=== PATIENT | male | born 1975 | race Caucasian/White ===

== ENCOUNTER 2017-06-14 13:29 | Inpatient (IN) | payer BC ==
[~2017-06-14] VITALS: Ht 162.6 cm; Wt 80.0 kg
[~2017-06-14 13:29] MED LIST: DEXAMETHASONE SOD PHOS 4 MG/ML VIAL IV ONE; LIDOCAINE HCL 1% PF 5 ML SYRINGE OTHER ONE; ONDANSETRON HCL 4 MG/2 ML VIAL IV ONE; PROPOFOL 200 MG/20 ML AMP IV ONE; ROCURONIUM INJ 50 MG/5 ML SYRINGE IV PUSH ONE
[2017-06-14 14:11] VITALS: BP 136/82; PULSE 101; RESP 16; TEMP 100.6; O2SAT 97
--- NOTE | 2017-06-14 14:42 | PD ---
HPI Chief Complaint: GI Complaint Time Seen by Provider: 14:36 Travel History International Travel<30 days: No Contact w/Intl Traveler<30days: No Traveled to known affect area: No History of Present Illness HPI Patient is a 42-year-old otherwise healthy male presents emergency department with gradually increasing right lower quadrant abdominal pain. Patient states it hurts him worse anytime he sits up or moves, states the pain is somewhat severe, no nausea no vomiting no diarrhea no change in urine habits. Patient states it started yesterday but gradually worsening. Right lower quadrant abdominal without radiation. [facility] Past Medical History Medical History: Denies Significant Hx Past Surgical History Narrative Surgical Knee surgery, shoulder surgery, lumbar fusion. Social History Alcohol Use: Yes Tobacco Use: No Substance Use: No Allergies-Medications (Allergen,Severity, Reaction): Coded Allergies: No Known Allergies (Unverified , 06/14/17) Reported Meds & Prescriptions Reported Meds & Active Scripts Active No Active Prescriptions or Reported Medications Review of Systems Except as stated in HPI: all other systems reviewed are Neg Physical Exam Narrative GENERAL: Well-developed well-nourished in no obvious distress peer SKIN: Focused skin assessment warm/dry. HEAD: Atraumatic. Normocephalic. EYES: Pupils equal and round. No scleral icterus. No injection or drainage. ENT: No nasal bleeding or discharge. Mucous membranes pink and moist. NECK: Trachea midline. No JVD. CARDIOVASCULAR: Regular rate and rhythm. No murmur appreciated. RESPIRATORY: No accessory muscle use. Clear to auscultation. Breath sounds equal bilaterally. GASTROINTESTINAL: Abdomen soft, fairly tender in the right lower quadrant, no rebound tenderness, there is some tenderness to indirect percussion in the right lower quadrant, there is some voluntary guarding in the right lower quadrant. Table bump was negative. GENITOURINARY: Grossly normal circumcised male genitalia, no tenderness, no inguinal hernia MUSCULOSKELETAL: No obvious deformities. No clubbing. No cyanosis. No edema. NEUROLOGICAL: Awake and alert. No obvious cranial nerve deficits. Motor grossly within normal limits. Normal speech. PSYCHIATRIC: Appropriate mood and affect; insight and judgment normal. Data Data Last Documented VS Vital Signs Date Time Temp Pulse Resp B/P (MAP) Pulse Ox O2 Delivery O2 Flow Rate FiO2 06/14/17 15:06 99.1 06/14/17 14:11 101 16 97 Orders Orders Complete Blood Count With Diff (06/14/17 14:12) Comprehensive Metabolic Panel (06/14/17 14:12) Urinalysis - C+S If Indicated (06/14/17 14:12) Act Partial Throm Time (Ptt) (06/14/17 14:12) Prothrombin Time / Inr (Pt) (06/14/17 14:12) Morphine Inj (Morphine Inj) (06/14/17 14:45) Sodium Chlor 0.9% 1000 Ml Inj (Ns 1000 M (06/14/17 14:45) Diet Npo (06/14/17 Dinner) Ondansetron Inj (Zofran Inj) (06/14/17 15:00) Ct Abd/Pel W Iv Contrast(Rout) (06/14/17 15:10) Ampicillin-Sulbactam Inj (Unasyn Inj) (06/14/17 16:15) Iohexol 350 Inj (Omnipaque 350 Inj) (06/14/17 16:17) Sodium Chlor 0.9% 1000 Ml Inj (Ns 1000 M (06/14/17 17:00) Type And Screen (06/14/17 16:27) Admit Order (Ed Use Only) (06/14/17 ) Labs Laboratory Tests Test 06/14/17 14:20 06/14/17 14:30 White Blood Count 22.0 TH/MM3 Red Blood Count 4.96 MIL/MM3 Hemoglobin 15.8 GM/DL Hematocrit 44.7 % Mean Corpuscular Volume 90.2 FL Mean Corpuscular Hemoglobin 31.9 PG Mean Corpuscular Hemoglobin Concent 35.4 % Red Cell Distribution Width 12.9 % Platelet Count 264 TH/MM3 Mean Platelet Volume 8.6 FL Neutrophils (%) (Auto) 85.1 % Lymphocytes (%) (Auto) 7.6 % Monocytes (%) (Auto) 7.2 % Eosinophils (%) (Auto) 0.0 % Basophils (%) (Auto) 0.1 % Neutrophils # (Auto) 18.7 TH/MM3 Lymphocytes # (Auto) 1.7 TH/MM3 Monocytes # (Auto) 1.6 TH/MM3 Eosinophils # (Auto) 0.0 TH/MM3 Basophils # (Auto) 0.0 TH/MM3 CBC Comment DIFF FINAL Differential Comment Prothrombin Time 11.9 SEC Prothromb Time International Ratio 1.2 RATIO Activated Partial Thromboplast Time 27.8 SEC Blood Urea Nitrogen 7 MG/DL Creatinine 0.88 MG/DL Random Glucose 125 MG/DL Total Protein 7.6 GM/DL Albumin 3.8 GM/DL Calcium Level 8.8 MG/DL Alkaline Phosphatase 58 U/L Aspartate Amino Transf (AST/SGOT) 14 U/L Alanine Aminotransferase (ALT/SGPT) 27 U/L Total Bilirubin 1.2 MG/DL Sodium Level 134 MEQ/L Potassium Level 3.8 MEQ/L Chloride Level 101 MEQ/L Carbon Dioxide Level 23.5 MEQ/L Anion Gap 10 MEQ/L Estimat Glomerular Filtration Rate 95 ML/MIN Urine Color YELLOW Urine Turbidity CLEAR Urine pH 7.5 Urine Specific [place] 1.020 Urine Protein 30 mg/dL Urine Glucose (UA) NEG mg/dL Urine Ketones TRACE mg/dL Urine Occult Blood NEG Urine Nitrite NEG Urine Bilirubin NEG Urine Urobilinogen LESS THAN 2.0 MG/DL Urine Leukocyte Esterase NEG Urine RBC 1 /hpf Urine WBC LESS THAN 1 /hpf Urine Squamous Epithelial Cells <1 /hpf Microscopic Urinalysis Comment CULT NOT INDICATED MDM Medical Decision Making Medical Screen Exam Complete: Yes Emergency Medical Condition: Yes Differential Diagnosis Acute appendicitis, ruptured appendicitis, hernia unlikely, kidney stone Narrative Course Last 24 hours Impressions Abdomen/Pelvis CT 06/14/17 1510 Signed Impressions: Service Date/Time: Wednesday, June 14, 2017 16:05 - CONCLUSION: 1. Severe inflammatory changes in the right lower quadrant secondary to acute appendicitis. The appendix is dilated and an appendicolith is visualized. The severe surrounding inflammatory change cause thickening of the distal ileum. The appearance and free fluid present are suspicious for rupture. 2. No other acute finding is identified. Kanu Yang MD The findings above were discussed with the patient and recommended admission for probable operative intervention, discussed with Dr. Felix who will alert the operating room, he agrees with Unasyn given. Diagnosis Primary Impression: Acute appendicitis Admitting Information Admitting Physician Requests: Admit Scripts No Active Prescriptions or Reported Meds Condition: Syed Wick MD Jun 14, 2017 14:42
[2017-06-14] MEDS ORDERED: MORPHINE SULFATE 4 MG/ML INJ IV PUSH ONE (14:45)
[2017-06-14] MEDS ORDERED: SODIUM CHLOR 0.9% 1000 ML INJ 1,000 ML IV ONE ×2 (14:45→17:00)
[2017-06-14] MEDS ORDERED: ONDANSETRON HCL 4 MG/2 ML VIAL IV PUSH ONE (15:00)
[2017-06-14 15:06] VITALS: TEMP 99.1
[2017-06-14 15:07] LABS: AUTOMATED NEUTROPHIL # 18.7 TH/MM3 (1.8-7.7); BASOPHIL % 0.1 % (0.0-2.0); HEMATOCRIT 44.7 % (39.0-51.0); HEMOGLOBIN 15.8 GM/DL (13.0-17.0); LYMPH % 7.6 % (9.0-44.0); LYMPHOCYTE # 1.7 TH/MM3 (1.0-4.8); MEAN CELL VOLUME 90.2 FL (80.0-100.0); MEAN CORPUSCULAR HEMOGLOBIN 31.9 PG (27.0-34.0); MEAN CORPUSCULAR HGB CONC 35.4 % (32.0-36.0); MEAN PLATELET VOLUME 8.6 FL (7.0-11.0); MONO % 7.2 % (0.0-8.0); MONOCYTE # 1.6 TH/MM3 (0-0.9); NEUT % 85.1 % (16.0-70.0); PLATELET COUNT 264 TH/MM3 (150-450); RED BLOOD COUNT 4.96 MIL/MM3 (4.50-5.90); RED CELL DISTRIBUTION WIDTH 12.9 % (11.6-17.2)
[2017-06-14 15:10] LABS: BILIRUBIN, URINE NEG (NEG); BLOOD, URINE NEG (NEG); GLUCOSE,URINE NEG (NEG); KETONE, URINE TRACE mg/dL (NEG); NITRITE,URINE NEG (NEG); PH, URINE 7.5 (5.0-8.5); SQUAMOUS EPITHELIAL CELL URINE <1 /hpf (0-5); URINE COLOR YELLOW (YELLW/STRAW); URINE LEUKOCYTE ESTERASE NEG (NEG)
[2017-06-14 15:28] LABS: INTERNATIONAL NORMALIZED RATIO 1.2 RATIO; PROTHROMBIN TIME - PATIENT 11.9 SEC (9.8-11.6)
[2017-06-14 15:31] LABS: ALBUMIN 3.8 GM/DL (3.4-5.0); ALT (GPT) 27 U/L (12-78); AST (GOT) 14 U/L (15-37); BICARBONATE 23.5 MEQ/L (21.0-32.0); BLOOD UREA NITROGEN 7 MG/DL (7-18); CALCIUM 8.8 MG/DL (8.5-10.1); CHLORIDE 101 MEQ/L (98-107); CREATININE 0.88 MG/DL (0.60-1.30); GLOMERULAR FILTRATION RATE 95 ML/MIN (>89); GLUCOSE,RANDOM 125 MG/DL (74-106); SODIUM (NA) 134 MEQ/L (136-145)
[2017-06-14 15:32] LABS: ALKALINE PHOSPHATASE 58 U/L (45-117); TOTAL BILIRUBIN ADULT 1.2 MG/DL (0.2-1.0); TOTAL PROTEIN 7.6 GM/DL (6.4-8.2)
[2017-06-14] MEDS ORDERED: AMPICILLIN-SULBACTAM INJ 3 GM in SODIUM CHLORIDE 0.9% INJ 100 ML IV ONE (16:15)
[2017-06-14] MEDS ORDERED: IOHEXOL 350 MG/ML 10 ML VIAL (for RAD DIAG) IVCONTRAST ONE (16:17)
--- NOTE | 2017-06-14 16:36 | RADRPT ---
EXAM DATE/TIME: 06/14/2017 16:05 [facility] COMPARISON: No previous studies available for comparison. INDICATIONS : Right lower quadrant pain since yesterday IV CONTRAST: 87 cc Omnipaque 350 (iohexol) IV ORAL CONTRAST: No oral contrast ingested. RADIATION DOSE: 10.50 CTDIvol (mGy) MEDICAL HISTORY : None SURGICAL HISTORY : None. ENCOUNTER: Initial ACUITY: 1 day PAIN SCALE: 8/10 LOCATION: Right lower quadrant TECHNIQUE: Volumetric scanning of the abdomen and pelvis was performed. Using automated exposure control and ad justment of the mA and/or kV according to patient size, radiation dose was kept as low as reasonably achievable to obtain optimal diagnostic quality images. DICOM format image data is available electro nically for review and comparison. FINDINGS: LOWER LUNGS: The visualized lower lungs are clear. LIVER: Homogeneous density without lesion. There is no dilation of the biliary tree. No calcified gallston es. SPLEEN: Normal size without lesion. PANCREAS: Within normal limits. KIDNEYS: Normal in size and shape. There is no mass, stone or hydronephrosis. ADRENAL GLANDS: Within normal limits. VASCULAR: There is no aortic aneurysm. BOWEL/MESENTERY: The stomach and proximal small bowel are within normal limits. There is wall thickening of the distal ileum adjacent to the right lower quadrant inflammatory process. Adjacent to the base of the cecum i s a curvilinear calcification measuring approximately 14 mm. There is a tubular structure measuring 1 2 mm in diameter that is fluid filled. There is severe surrounding inflammatory change and there is a small volume of fluid in the right paracolic gutter and within the dependent aspect of the pelvis. M ild sigmoid diverticulosis is present. There is no free intraperitoneal air. ABDOMINAL WALL: Within normal limits. RETROPERITONEUM: There is no lymphadenopathy. BLADDER: No wall thickening or mass. REPRODUCTIVE: Within normal limits. INGUINAL: There is no lymphadenopathy or hernia. MUSCULOSKELETAL: There are mild degenerative changes of the lumbar spine and patient is post posterior spinal fixation with laminectomy at L4-L5. CONCLUSION: 1. Severe inflammatory changes in the right lower quadrant secondary to acute appendicitis. The appen ashley is dilated and an appendicolith is visualized. The severe surrounding inflammatory change cause t hickening of the distal ileum. The appearance and free fluid present are suspicious for rupture. 2. No other acute finding is identified. Kanu Yang MD on June 14, 2017 at 16:29 Board Certified Radiologist. This report was verified electronically.
[2017-06-14] MEDS ORDERED: BUPIVACAINE/EPINEPHRINE 0.25% 50 ML VIAL ONE (17:27)
[2017-06-14] MEDS ORDERED: METOCLOPRAMIDE HCL 10 MG/2 ML VIAL ONE (18:13)
[2017-06-14] MEDS ORDERED: FAMOTIDINE 20 MG/2 ML VIAL ONE (18:13)
[2017-06-14] MEDS ORDERED: SUGAMMADEX SODIUM 200 MG/2 ML VIAL IV PUSH ONE (18:54)
[2017-06-14] MEDS ORDERED: *MEPERIDINE 25 MG INJ VIAL PERIprocedural Use ONLY ONE (19:17)
[2017-06-14] MEDS ORDERED: DO NOT ADM ANY ANTICOAGULANT DRUGS PRN (19:21)
[2017-06-14] MEDS ORDERED: PROMETHAZINE HCL 25 MG SUPP RECTAL PRN (19:30)
[2017-06-14] MEDS ORDERED: MIDAZOLAM HCL 2 MG/2 ML VIAL ONE (19:33)
[2017-06-14] MEDS ORDERED: NALOXONE HCL 0.4 MG/ML AMP IV PUSH PRN (20:00)
[2017-06-14] MEDS ORDERED: BENZOCAINE 20% ORAL SPR 60 ML CAN MT PRN (20:00)
[2017-06-14] MEDS ORDERED: diphenhydrAMINE HCL 50 MG/ML VIAL IV PUSH PRN (20:00)
[2017-06-14] MEDS ORDERED: SODIUM CHLORIDE 0.9% FLUSH 10 ML FLUSH IV FLUSH PRN (20:00)
[2017-06-14] MEDS ORDERED: METOCLOPRAMIDE HCL 10 MG/2 ML VIAL IV PUSH PRN (20:00)
[2017-06-14] MEDS ORDERED: ONDANSETRON HCL 4 MG/2 ML VIAL IV PUSH PRN (20:00)
[2017-06-14] MEDS: ACETAMINOPHEN 1000 MG/100 ML 100 ML IV SCH (20:00)
[2017-06-14] MEDS: LACTATED RINGER'S 1000 ML INJ 1,000 ML IV SCH (20:00)
--- NOTE | 2017-06-14 20:11 | MH ---
cc: Bhavik Ayala MD DATE OF ADMISSION: 06/14/2017 CHIEF COMPLAINT: Acute appendicitis. HISTORY OF PRESENT ILLNESS: Patient is a 42-year-old male who was visiting the [place] with his family from [place] who developed 24 hours of increasing right lower quadrant pain. The pain became worse over night associated with movement. He has no other nausea, vomiting or relieving or aggravating factors. He has never had pain like this before. The patient denies fever, chills, night sweats, diarrhea, constipation or any other complaints. Patient did present to the emergency department at [facility] and he was found to have leukocytosis on laboratory values as well as inflammation of the right lower quadrant concerning for appendicitis on his CT scan. General surgery was asked to see the patient in the emergency department. REVIEW OF SYSTEMS: A 12-point review of systems was conducted with the patient and is negative except for the pertinent positives mentioned above in the history of present illness. PAST MEDICAL HISTORY: None. PAST SURGICAL HISTORY: No previous abdominal surgeries. ALLERGIES: NO KNOWN DRUG ALLERGIES.. MEDICATIONS: No chronic medications. SOCIAL HISTORY: Patient denies alcohol, tobacco or illicit drug use. FAMILY HISTORY: No history of GI malignancy or inflammatory bowel disease. PHYSICAL EXAMINATION: VITAL SIGNS: Temperature 100.6, heart rate 101, blood pressure 136/82. GENERAL: The patient is a well-developed, well-nourished, male in no acute distress. He appears ill and uncomfortable. HEENT: Head is normocephalic, atraumatic. Pupils are round and reactive to light. Sclerae anicteric. Oral cavity is clear. Airway is patent. NECK: Supple. No JVD. No lymphadenopathy. LUNGS: Clear to auscultation bilaterally with an unlabored breathing pattern. HEART: Regular in rhythm. PMI is nondisplaced. ABDOMEN: Hypoactive bowel sounds. Focal peritonitis with rebound tenderness on the right lower quadrant. No diffuse peritonitis or rebound tenderness. No surgical scars. No hernias. No organomegaly. No ascites. BACK: No CVA tenderness. RECTAL: Exam is deferred. EXTREMITIES: No clubbing, cyanosis or edema. NEUROLOGIC: Patient is alert and oriented x 3. Mood, judgment and insight are intact. Nonfocal peripheral exam. Cranial nerves 2-12 are grossly intact. LABORATORY VALUES: Unremarkable with the exception of leukocytosis of 22. ASSESSMENT AND PLAN: Patient is a 42-year-old male with acute appendicitis. I had discussion with the patient and his at the bedside about treatment options and recommendations. I do strongly recommend the patient proceed urgently to the operating room for laparoscopic appendectomy. I discussed the surgery, the risks, benefits and alternatives; and also discussed outcomes including outcomes of ruptured appendicitis including abscess formation and prolonged hospitalization and need for further procedures. They are in agreement and wish to proceed with the procedure. We will continue the patient nothing my mouth and IV fluids and IV antibiotics until operating room is available and proceed urgently to the operating room for laparoscopic appendectomy. MD MYA Calzada/DOMINIC , 07:33 PM , 08:09 PM
--- NOTE | 2017-06-14 20:33 | MP ---
cc: Bhavik Ayala MD DATE OF OPERATION: 06/14/2017 PREOPERATIVE DIAGNOSIS: Acute appendicitis. POSTOPERATIVE DIAGNOSIS: Acute ruptured appendicitis. ATTENDING SURGEON: Bhavik Ayala MD BAR SUPERVISOR: Staff. PROCEDURE: Laparoscopic appendectomy with laparoscopic drainage of intraabdominal periappendiceal abscess. ANESTHESIA: General and local anesthetic. BLOOD LOSS: Less than 25 mL. FINDINGS: Ruptured appendicitis at the tip of the appendix with early abscess formation around the tip and against the right lower quadrant of the abdominal wall. INDICATION FOR PROCEDURE: The patient is a 42-year-old male with 24 hours increasing right lower quadrant pain. The patient was visiting [facility] from [place] when he developed severe onset of abdominal pain in the right lower quadrant that worsened overnight. He presented to [facility] and was found to have acute appendicitis clinically as well as on imaging. The patient was taken to the operating room for laparoscopic appendectomy and risks, benefits and alternatives were discussed with the patient and his prior to the procedure and agreed to undergo the procedure. DESCRIPTION OF PROCEDURE: The patient taken to the operating room, placed in supine position and placed under general endotracheal anesthesia. The patient's abdomen was shaved, prepped and draped in sterile fashion. Time out was performed. The abdomen was entered through Rossi type technique with a periumbilical curvilinear incision 2 cm in length below the umbilicus, directly down to the fascia. The fascia was opened with an 11 blade scalpel without difficulty. Directly entered the abdomen with the hemostat and S retractors and placed a 5 mm balloon trocar into the abdomen under direct visualization. We insufflated the abdomen. There was no evidence of any complication from our injury. We placed two 5 mm ports, one in the suprapubic position and one in the left lower quadrant under direct visualization of the laparoscope. We were able to easily identify the appendix in the right lower quadrant. We did some blunt lysis of adhesions and took down some inflammatory adhesions of the appendix up against the abdominal wall and entered an early abscess cavity with purulence and clear fluid as well as some gross contamination from obviously ruptured appendix at the tip of the appendix. We dissected out the appendix and made a window at the base of the appendix using the [place] dissector. We divided the base of the appendix as it transitioned into the cecum with a white load on the [place]wood stapler. The tissue was healthy and viable in this area with minimal inflammation and our staple line was intact with no bleeding or leak. We then used a second white load to divide the mesentery of the appendix without difficulty. The appendix was removed from the abdomen with the EndoCatch bag at the periumbilical Rossi port. We irrigated out the abdomen with 3 liters of saline until all suction was clear and all contamination, purulent material or any debris were all clearly suctioned out from the right lower quadrant. We had excellent hemostasis spontaneously. At this point in time we placed a 19 Romanian round Alphonse drain through the suprapubic 5 mm port and into the right lower quadrant and looping this into the pelvis. We placed the omentum back into the right lower quadrant and ensured everything was in normal anatomic position. There was no evidence of any other intraabdominal process or pathology. We removed the ports under visualization of the laparoscope and expressed pneumoperitoneum. We closed the Rossi fascia entry with a [id number] 0 Vicryl suture. We closed the skin with a 4-0 Monocryl and Dermabond. Patient's drain was placed to bulb suction and dressing was placed around this. We transported the patient to the PACU in stable after discontinuation of anesthesia. The patient tolerated the procedure well and no apparent complications. All counts were correct and I was present and scrubbed for the entire procedure. MD BRIANNA CalzadaG/rt , 07:38 PM , 08:31 PM KATIE
[2017-06-14] MEDS: FAMOTIDINE 20 MG/2 ML VIAL IV PUSH SCH (20:35)
[2017-06-14] MEDS ORDERED: HYDROmorphone HCL PF 2 MG/ML VIAL IV PUSH PRN (20:45)
[2017-06-14] MEDS: PIPERACIL-TAZO 3.375 GM PREMIX 50 ML IV SCH (20:45)
[2017-06-14] MEDS ORDERED: ACETAMINOPHEN/HYDROcodone 325 MG/5 MG TAB PO PRN (20:45)
[2017-06-14] MEDS ORDERED: Post-op Orders (for Pharmacy) XX ONE (21:00)
[2017-06-14] MEDS: SODIUM CHLORIDE 0.9% FLUSH 10 ML FLUSH IV FLUSH SCH (21:00)
[2017-06-15] VITALS (8 sets, daily range): BP systolic 111–123; BP diastolic 55–74; PULSE 51–86; RESP 18–19; TEMP 97.9–98.8; O2SAT 93–98
[2017-06-15] MEDS: ACETAMINOPHEN/HYDROcodone 325 MG/10 MG TAB PO PRN ×4 (00:58→21:16)
[2017-06-15] MEDS: ACETAMINOPHEN 1000 MG/100 ML 100 ML IV SCH ×3 (04:02→14:07)
[2017-06-15] MEDS: PIPERACIL-TAZO 3.375 GM PREMIX 50 ML IV SCH ×4 (04:03→21:15)
[2017-06-15] MEDS: LACTATED RINGER'S 1000 ML INJ 1,000 ML IV SCH ×3 (05:37→14:49)
[2017-06-15] MEDS: SODIUM CHLORIDE 0.9% FLUSH 10 ML FLUSH IV FLUSH SCH ×2 (08:27→21:00)
[2017-06-15] MEDS: FAMOTIDINE 20 MG/2 ML VIAL IV PUSH SCH ×2 (08:27→21:16)
[2017-06-15] MEDS: ENOXAPARIN SODIUM 40 MG/0.4 ML SYRINGE SQ SCH ×2 (11:23→21:16)
--- NOTE | 2017-06-15 16:30 | HHI.PR ---
Subjective Subjective Notes Resting in bed Walked in hallways this AM Objective Vitals/I&O Vital Signs Date Time Temp Pulse Resp B/P (MAP) Pulse Ox O2 Delivery O2 Flow Rate FiO2 06/15/17 12:00 98.8 55 18 118/74 (89) 96 06/15/17 08:49 21 06/15/17 00:20 Nasal Cannula 2.00 Cardiovascular: Regular Lungs: Clear Abdomen: Other (slightly distended; LEW with SS drainage; lap sites c/d/i ) Extremities: No edema A/P Assessment and Plan 42 year old male POD1 lap appy; perforated -Continue clear liquids until bowel function returns -IVF -Zosyn -OOB as tolerated -Pain control Attending Statement The exam, history, and the medical decision-making described in the above note were completed with the assistance of the mid-level provider. I reviewed and agree with the findings presented. I attest that I had a [id number] encounter with the patient on the same day, and personally performed and documented my assessment and findings in the medical record. patient s/p lap appy abdominal exam stable postop pain ok ok for SHANTAL hoffman Kathryn B. ARNP/First Lorraine ALEJANDRA Jun 15, 2017 16:30 Bhavik Ayala MD Jun 16, 2017 12:49
[2017-06-16] VITALS (8 sets, daily range): BP systolic 90–132; BP diastolic 52–88; PULSE 72–95; RESP 16–20; TEMP 98.2–98.9; O2SAT 94–98
[2017-06-16] MEDS: PIPERACIL-TAZO 3.375 GM PREMIX 50 ML IV SCH ×3 (03:26→15:17)
[2017-06-16] MEDS: LACTATED RINGER'S 1000 ML INJ 1,000 ML IV SCH ×4 (03:26→20:00)
[2017-06-16] MEDS: ACETAMINOPHEN/HYDROcodone 325 MG/10 MG TAB PO PRN ×3 (08:11→20:38)
[2017-06-16 08:30] LABS: AUTOMATED NEUTROPHIL # 7.4 TH/MM3 (1.8-7.7); BASOPHIL % 0.3 % (0.0-2.0); EOSINOPHIL % 0.4 % (0.0-4.0); HEMATOCRIT 39.3 % (39.0-51.0); HEMOGLOBIN 13.8 GM/DL (13.0-17.0); LYMPH % 16.1 % (9.0-44.0); LYMPHOCYTE # 1.5 TH/MM3 (1.0-4.8); MEAN CELL VOLUME 92.9 FL (80.0-100.0); MEAN CORPUSCULAR HEMOGLOBIN 32.7 PG (27.0-34.0); MEAN CORPUSCULAR HGB CONC 35.2 % (32.0-36.0); MEAN PLATELET VOLUME 8.6 FL (7.0-11.0); MONO % 6.5 % (0.0-8.0); MONOCYTE # 0.6 TH/MM3 (0-0.9); NEUT % 76.7 % (16.0-70.0); PLATELET COUNT 225 TH/MM3 (150-450); RED BLOOD COUNT 4.23 MIL/MM3 (4.50-5.90); WHITE BLOOD COUNT 9.6 TH/MM3 (4.0-11.0)
[2017-06-16] MEDS: SODIUM CHLORIDE 0.9% FLUSH 10 ML FLUSH IV FLUSH SCH ×2 (09:00→20:36)
[2017-06-16] MEDS: FAMOTIDINE 20 MG/2 ML VIAL IV PUSH SCH ×2 (09:11→20:36)
--- NOTE | 2017-06-16 12:25 | HHI.PR ---
Subjective Subjective Notes feels better Objective Vitals/I&O Vital Signs Date Time Temp Pulse Resp B/P (MAP) Pulse Ox O2 Delivery O2 Flow Rate FiO2 06/16/17 08:00 98.4 72 17 127/72 (90) 96 06/15/17 08:49 21 06/15/17 00:20 Nasal Cannula 2.00 Labs Laboratory Tests Test 06/16/17 07:50 White Blood Count 9.6 Red Blood Count 4.23 Hemoglobin 13.8 Hematocrit 39.3 Mean Corpuscular Volume 92.9 Mean Corpuscular Hemoglobin 32.7 Mean Corpuscular Hemoglobin Concent 35.2 Red Cell Distribution Width 13.0 Platelet Count 225 Mean Platelet Volume 8.6 Neutrophils (%) (Auto) 76.7 Lymphocytes (%) (Auto) 16.1 Monocytes (%) (Auto) 6.5 Eosinophils (%) (Auto) 0.4 Basophils (%) (Auto) 0.3 Neutrophils # (Auto) 7.4 Lymphocytes # (Auto) 1.5 Monocytes # (Auto) 0.6 Eosinophils # (Auto) 0.0 Basophils # (Auto) 0.0 CBC Comment AUTO DIFF Differential Comment AUTO DIFF CONFIRMED Abdomen: Non-distended, Post-op tenderness A/P Assessment and Plan 42yo make s/p lap appy for perforated appendicitis, stable. advance diet dc drain DC home Monday for flight out Monday to [place] cont Bhavik Burnham MD Jun 16, 2017 12:25
[2017-06-16] MEDS ORDERED: AMOX875T2 PO (16:48)
[2017-06-16] MEDS ORDERED: HYDR-3516 PO (16:49)
[2017-06-16] MEDS: AMOXICILLIN/CLAVULANATE K 875 MG TAB PO SCH (20:35)
[2017-06-16] MEDS: MAGNESIUM HYDROXIDE SUSP 30 ML CUP PO PRN (20:52)
[2017-06-17 00:20] VITALS: BP 113/54; PULSE 86; RESP 20; TEMP 99.8; O2SAT 94
[2017-06-17 04:00] VITALS: BP 124/61; PULSE 64; RESP 16; TEMP 99; O2SAT 94
[2017-06-17] MEDS: LACTATED RINGER'S 1000 ML INJ 1,000 ML IV SCH ×3 (04:00→20:00)
[2017-06-17] MEDS: ACETAMINOPHEN/HYDROcodone 325 MG/10 MG TAB PO PRN ×3 (06:18→20:59)
[2017-06-17 08:00] VITALS: BP 121/74; PULSE 84; RESP 17; TEMP 98.6; O2SAT 94
[2017-06-17] MEDS: SODIUM CHLORIDE 0.9% FLUSH 10 ML FLUSH IV FLUSH SCH ×2 (09:03→21:01)
[2017-06-17] MEDS: FAMOTIDINE 20 MG/2 ML VIAL IV PUSH SCH ×2 (09:03→20:58)
[2017-06-17] MEDS: AMOXICILLIN/CLAVULANATE K 875 MG TAB PO SCH ×2 (09:03→20:58)
[2017-06-17] MEDS: MAGNESIUM HYDROXIDE SUSP 30 ML CUP PO PRN (09:03)
[2017-06-17 12:00] VITALS: BP 141/67; PULSE 87; RESP 17; TEMP 98.3; O2SAT 96
[2017-06-17] MEDS: ENOXAPARIN SODIUM 40 MG/0.4 ML SYRINGE SQ SCH (15:21)
[2017-06-17 16:00] VITALS: BP 136/76; PULSE 101; RESP 17; TEMP 99.6; O2SAT 96
--- NOTE | 2017-06-17 16:30 | HHI.PR ---
cc: Jarrod Chaves MD Subjective Subjective Notes DAILY PROGRESS NOTE FOR SURGICAL ATTENDING, DR. JARROD CHAVES Feeling good tolerating diet Normal postoperative discomfort Objective Vitals/I&O Vital Signs Date Time Temp Pulse Resp B/P (MAP) Pulse Ox O2 Delivery O2 Flow Rate FiO2 06/17/17 16:00 99.6 101 17 136/76 (96) 96 06/15/17 08:49 21 06/15/17 00:20 Nasal Cannula 2.00 Radiology Last Impressions Abdomen/Pelvis CT 06/14/17 1510 Signed Impressions: Service Date/Time: Wednesday, June 14, 2017 16:05 - CONCLUSION: 1. Severe inflammatory changes in the right lower quadrant secondary to acute appendicitis. The appendix is dilated and an appendicolith is visualized. The severe surrounding inflammatory change cause thickening of the distal ileum. The appearance and free fluid present are suspicious for rupture. 2. No other acute finding is identified. aKnu Yang MD Cardiovascular: Regular Lungs: Clear Abdomen: Post-op tenderness Extremities: No edema, Perfused A/P Problem List: (1) Status post laparoscopic appendectomy ICD Codes: Z90.49 - Acquired absence of other specified parts of digestive tract Status: Acute (2) Acute appendicitis ICD Codes: K35.80 - Unspecified acute appendicitis Status: Resolved Assessment and Plan 48-year-old gentleman underwent laparoscopic appendectomy for perforated appendicitis He is progressing nicely Hopefully he can be discharged tomorrow prescriptions for antibiotics and pain medicine are on the chart. Arrangements are being made to have him fly back to [place] on Monday I believe he may be ready to be discharged tomorrow Attending Statement NOTE FOR SURGICAL ATTENDING, DR. JARROD CHAVES I attest that I had a [id number] encounter with the patient on the same day, and personally performed and documented my assessment and findings in the medical record. The following services were provided during this hospital visit: Chart data review, vital sign assessments/reviewing monitor data Review of consultations notes if present. Medication orders/review and/or management Ordering and/or reviewing lab tests Ordering and/or interpreting/reviewing x-rays and/or diagnostic studies Care of the patient and discussion of the patient with the care team Documentation time To help prompt me to consider important information that might be impacting today's encounter and assessment, information from prior notes written by myself or my colleagues may have been "brought forward/copy and pasted" into today's note. Problem Qualifiers (1) Acute appendicitis: Qualified Codes: K35.3 - Acute appendicitis with localized peritonitis Jarrod Chaves MD Jun 17, 2017 16:30
[2017-06-17 20:23] VITALS: BP 118/57; PULSE 71; RESP 18; TEMP 98.9; O2SAT 98
[2017-06-18 00:30] VITALS: BP 113/68; PULSE 71; RESP 19; TEMP 98.6; O2SAT 95
[2017-06-18] MEDS: ACETAMINOPHEN/HYDROcodone 325 MG/10 MG TAB PO PRN (03:31)
[2017-06-18] MEDS: LACTATED RINGER'S 1000 ML INJ 1,000 ML IV SCH ×2 (04:00→08:43)
[2017-06-18 05:16] VITALS: BP 123/61; PULSE 69; RESP 19; TEMP 98.8; O2SAT 94
[2017-06-18] MEDS: AMOXICILLIN/CLAVULANATE K 875 MG TAB PO SCH (08:39)
[2017-06-18] MEDS: FAMOTIDINE 20 MG/2 ML VIAL IV PUSH SCH (08:39)
[2017-06-18] MEDS: SODIUM CHLORIDE 0.9% FLUSH 10 ML FLUSH IV FLUSH SCH (08:43)
== END 2017-06-18 11:05 | disposition home or self-care (01) | DRG 340 ==
LOC: NEPC 13:29 → HSDC 16:58 → HSDI 19:28 → N05B 21:09
PROVIDERS: ADMIT Surgery; ATTEND Surgery
PROC: 0DTJ4ZZ Resection of Appendix, Percutaneous Endoscopic Approach (ICD-10-PCS; principal; 2017-06-14 18:14)
DX: K35.3 Acute appendicitis with localized peritonitis (principal)
CPT/HCPCS: 74177; 80053; 81001; 85025; 85610; 85730; 86850; 86900; 86901; 88304; 94150; 96361; 96365; 96375; J0131; J0295; J1100; J2175; J2250; J2270; J2405; J2543; J2765; J3010; J7030; J7120; Q9967